=== PATIENT | female | born 1950 | race Caucasian/White ===

== ENCOUNTER 2018-10-04 07:52 | Outpatient (CLI) | payer OTHER | END 2018-10-04 07:54 | disposition home or self-care (01) | LOC: SONOGRAMA 07:52 | DX: E04.1 Nontoxic single thyroid nodule (principal) ==

== ENCOUNTER 2020-04-23 10:05 | Outpatient (CLI) | payer OTHER | END 2020-04-23 10:12 | disposition home or self-care (01) | LOC: SONOGRAMA 10:05 | PROVIDERS: ATTEND Pathology Anatomic Pathology & Clinical Pathology | DX: D34 Benign neoplasm of thyroid gland (principal); E04.1 Nontoxic single thyroid nodule; E04.8 Other specified nontoxic goiter ==